=== PATIENT | female | born 1995 | race Caucasian/White ===

== ENCOUNTER 2016-09-24 19:30 | Inpatient (IN) | payer BC ==
[~2016-09-24] VITALS: Ht 160 cm; Wt 81.6 kg
--- NOTE | 2016-09-24 19:30 | NUR ---
MOTHER IN ROOM WITH PATIENT, PT CONVERSIVE AND MOTIVATED TO LEARN MORE ABOUT REHAB. REVIEWED THE ADMISSION PROCESS WITH PATIENT AND WHAT TO EXPEC THE FIRST DAY OF REHAB. PT SMILES EASILY, CONVERSIVE. PT DENIES PAIN. LEFT BRACE ON, LEFT ARM IN SLING.
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
[2016-09-24 21:59] VITALS: BP 120/64; BMI 31.9
[2016-09-25] MEDS ORDERED: BUPROPION XL150 MG PO (00:09)
[2016-09-25] MEDS ORDERED: CELEXA40 MG PO (00:10)
--- NOTE | 2016-09-25 03:00 | NUR ---
PT RESTING QUIETLY WITH EYES CLOSED, NO S/S OF ACUTE DISTRESS. RESPIRATIONS REGULAR AND UNLABORED.
--- NOTE | 2016-09-25 06:26 | NUR ---
PT SNUGGLED IN BED, PT AROUSES TO VOICE, TOOK HER AM MEDICATIONS AND REQUESTED THE ABILITY TO FALL BACK ASLEEP.
[2016-09-25 07:27] LABS: BASOPHILS 0.3 % (0-2); EOSINOPHILS 3.3 % (0-7); HEMATOCRIT 30.9 % (36.0-48.0); LYMPHOCYTES 19.6 % (15-50); MCH 26.7 pg (26.0-34.0); MCHC 32.4 g/dL (31.0-37.0); MCV 82.6 fL (80.0-100.0); MEAN PLATELET VOLUME 9.8 fL (7.4-10.4); MONOCYTES 6.6 % (2-11); NEUTROPHILS 66.2 % (40-80); PLATELET COUNT 273 10x3/uL (130-400); RBC 3.74 10x6/uL (4.00-5.40); RDW 15.1 % (11.5-14.5)
[2016-09-25 07:51] LABS: CALC OSMOLALITY 278 mosm/kg (275-300); CALCIUM 8.9 mg/dL (8.5-10.1); CHLORIDE - SERUM 105 mmol/L (98-107); CREATININE - SERUM 0.7 mg/dL (0.6-1.3); GLUCOSE 87 mg/dL (74-106); POTASSIUM - SERUM 4.4 mmol/L (3.5-5.1); SODIUM 140 mmol/L (136-145); UREA NITROGEN 14 mg/dL (7-18); eGFR NON AFRICAN AMERICAN > 90 mL/min (90-120)
[2016-09-25 08:00] VITALS: BP 116/57
--- NOTE | 2016-09-25 08:00 | NUR ---
PATIENT SITTING UP IN BED FOR BREAKFAST. ALERT/ORIENT X4. CALL LIGHT WITHIN REACH. VOICES NO NEEDS AT THIS TIME
--- NOTE | 2016-09-25 10:54 | NUR ---
PATIENT WORKING WITH OCCUPATIONAL THERAPIST. HELPING PATIENT WITH A SHOWER THIS MORNING. PRN PAIN MEDICATION GIVEN BEFORE SHOWER
[2016-09-25 11:09] VITALS: Ht 160 cm; Wt 81.6 kg
--- NOTE | 2016-09-25 16:01 | NUR ---
PATIENT IS A TOTAL ASST WITH SLIDING BOARD. TOE DOWN WT BEARING ON RIGHT SIDE. NO WT BEARING ON LEFT SIDE.
--- NOTE | 2016-09-25 16:40 | NUR ---
PATIENT HELPED BACK INTO BED WITH SLIDING BOARD.
--- NOTE | 2016-09-25 18:45 | NUR ---
RESTING QUIETLY IN BED CALL LIGHT IN REACH
--- NOTE | 2016-09-25 20:15 | NUR ---
PT TRANSFERRED FROM BED TO W/C WITH SLIDE BOARD, LIMITATIONS OBSERVED AND ADHERED TO, TRANSFERRED TO TOILET WITHOUT DIFFICULTY. PT NOW PUTTING TOGETHER PUZZLE IN THERAPY GYM. PT ABLE TO SELF PROPEL HER W/C.
[2016-09-25 21:39] VITALS: BP 131/74
--- NOTE | 2016-09-26 00:02 | NUR ---
PT BACK IN BED, REPOSITIONED, PT DID WELL WITH THE THOUGHT PROCESSES AND PROBLEM SOLVING OF USING THE SLIDE BOARD FOR TRANSFER TO TOILET, W/C AND BED. PT STATED SHE FELT LIKE A REAL PERSON SITTING AT A TABLE WORKING ON A PUZZLE. PT STATES SHE IS SORE FROM SITTING UP FOR SO LONG.
--- NOTE | 2016-09-26 03:21 | NUR ---
PT AWAKE, DROWSY WITH C/O OF LEFT SHOULDER PAIN, STATES HER PILLOW FELL. REPOSITIONED PILLOW.
[2016-09-26 06:14] LABS: BASOPHILS 0.1 % (0-2); EOSINOPHILS 2.5 % (0-7); HEMATOCRIT 30.8 % (36.0-48.0); HEMOGLOBIN 9.9 g/dL (12-16); IMMATURE GRANULOCYTES 3.9 % (0-5); LYMPHOCYTES 19.3 % (15-50); MCH 26.8 pg (26.0-34.0); MCHC 32.1 g/dL (31.0-37.0); MCV 83.5 fL (80.0-100.0); MEAN PLATELET VOLUME 10.1 fL (7.4-10.4); MONOCYTES 9.7 % (2-11); NEUTROPHILS 64.5 % (40-80); PLATELET COUNT 299 10x3/uL (130-400); RBC 3.69 10x6/uL (4.00-5.40); RDW 15.4 % (11.5-14.5); WBC 7.6 10x3/uL (4.8-10.8)
--- NOTE | 2016-09-26 06:30 | NUR ---
pt expresses concern with morning blood drawers. pt is conversive, friendly and motivated to get home. pt inquired on care team meeting this morning. provided pt with brief explanation.
[2016-09-26 06:34] LABS: CALC OSMOLALITY 278 mosm/kg (275-300); CALCIUM 8.9 mg/dL (8.5-10.1); CARBON DIOXIDE 25.3 mmol/L (21.0-32.0); CHLORIDE - SERUM 104 mmol/L (98-107); CREATININE - SERUM 0.8 mg/dL (0.6-1.3); GLUCOSE 89 mg/dL (74-106); POTASSIUM - SERUM 4.4 mmol/L (3.5-5.1); SODIUM 140 mmol/L (136-145); UREA NITROGEN 15 mg/dL (7-18); eGFR NON AFRICAN AMERICAN > 90 mL/min (90-120)
--- NOTE | 2016-09-26 07:50 | NUR ---
REMAINS SLEEPING.RESP EASY.CL IN REACH.
[2016-09-26 08:10] VITALS: BP 111/53
--- NOTE | 2016-09-26 08:16 | NUR ---
PATIENT ALERT/ORIENT X4. SITTING UP IN BED TO EAT BREAKFAST. CALL LIGHT WITHIN REACH. VOICES NO NEEDS
--- NOTE | 2016-09-26 09:31 | NUR ---
PRN PAIN MEDICATION GIVEN FOR ALL OVER BODY PAIN/DISC.
--- NOTE | 2016-09-26 10:20 | NUR ---
PATIENT IN REHAB ROOM. WORKING WITH OCCUPATIONAL THERAPIST
--- NOTE | 2016-09-26 13:19 | NUR ---
CARE PLAN MEETING. DR. Robert REID INTO SEE PATIENT. NEW ORDERS RECEIVED.
--- NOTE | 2016-09-26 15:32 | NUR ---
PATIENT IS TOE DOWN WEIGHT BEARING ON RIGHT SIDE. NO WEIGHT BEARING ON LEFT SIDE. PATIENT USING SLIDING BOARD TO TRANSFER FROM WHEELCHAIR INTO BED.
--- NOTE | 2016-09-26 16:49 | NUR ---
CARE TEAM MEETING: PATIENT ATTENDED MEETING AND HAS BEEN GRANTED A PASS WITH A HOME EVAL. PATIENT WILL BE RA AT NEXT MEETING. SHE WILL BE IN NEED OF A WHEELCHAIR, SLIDE BOARD, SHOWER CHAIR. WILL CONTINUE TO FOLLOW WITH PATIENT
--- NOTE | 2016-09-26 17:47 | NUR ---
PRN ULTRUM GIVEN TO PATIENT FOR ALL OVER BODY PAIN/DISC
[2016-09-26 19:07] VITALS: BP 163/87
--- NOTE | 2016-09-26 19:45 | NUR ---
PT IN THERAPY GYM SITTING UP IN W/C PUTTING HER PUZZLE PIECES TOGETHER. PT IS EXPECTING VISITORS DURING THE WEEK-END AND EXPRESSED CONCERN WITH VISITATION AND THERAPY SCHEDULE CONFLICT. ENCOURAGED PT TO SPEAK WITH THERAPY. SKIN UNDER BOOT IS INTACT, LEFT FOOT IS WARM, SENSATION INTACT, PEDAL PULSE PALPABLE. WRAP INTACT.
--- NOTE | 2016-09-27 00:05 | NUR ---
PT REQUESTED TO GET READY FOR BED, PT STATES SHE ENJOYS PUTTING HER PUZZLE TOGETHER. PT TRANSFERS WITH ONE USING THE BOARD ADHEREING TO WEIGHT BEARING PRECAUTIONS.
--- NOTE | 2016-09-27 03:56 | NUR ---
PT RESTING QUIETLY, EYES CLOSED, NO S/S OF ACUTE DISTRESS.
--- NOTE | 2016-09-27 07:40 | NUR ---
PT IS RESTING IN BED WITH EYES CLOSED. AWOKE EASILY TO VERBAL STIMULI. ALERT AND ORIENTED X 3. PT VOICED COMPLAINT OF A PAIN LEVEL OF 5 AT THIS TIME IN HER ENTIRE LEFT SIDE. MULTIPLE INTACT DRESSINGS NOTED TO LLE. INTACT CAST NOTED TO LUE WITH SLING IN PLACE. GOOD CAPILLARY REFILL NOTED. SR'S ARE UP X 2 IN BED. CALL LIGHT AND BEDSIDE TABLE ARE WITHIN EASY REACH.
--- NOTE | 2016-09-27 09:46 | NUR ---
PT IS RESTING IN BED WITH EYES CLOSED. AWAITING THERAPY. NO ACUTE DISTRESS NOTED.
[2016-09-27 11:34] VITALS: BP 110/59
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
--- NOTE | 2016-09-27 12:25 | NUR ---
PT IS FEEDING SELF LUNCH IN HER ROOM. NO NEEDS VOICED.
--- NOTE | 2016-09-27 14:38 | NUR ---
PT ASSISTED TO BED BY THERAPY. NO NEEDS VOICED.
--- NOTE | 2016-09-27 17:33 | NUR ---
PT IS UP IN HER WC BEING PROPELLED AROUND THE HOSPITAL BY HER FRIENDS.
--- NOTE | 2016-09-27 19:00 | NUR ---
UP IN W/C IN ROOM. DENIES NEEDS.
--- NOTE | 2016-09-27 19:30 | NUR ---
REMAINS UP IN W/C. NO COMPLAINTS. HEADED TO THERAPY ROOM TO WATCH TV AND WORK ON A PUZZLE.
[2016-09-27 20:10] VITALS: BP 152/77
--- NOTE | 2016-09-27 22:00 | NUR ---
REMAINS IN THERAPY ROOM. ASSESSMENT AND HS MEDS COMPLETE. GAVE PATIENT ULTRAM 50MG PO FOR PAIN LEVEL OF 7/10 PRIMARILY IN LEFT FEMUR AND LEFT LOWER LEG. OPENED 3D BOOT AND ASSESSED LEFT MEDIAL CALF DUE TO PAIN AND C/O REDNESS AND WARMTH. AREA IS SLIGHTLY WARMER THAN THE REST OF LE EXCEPT FOR INCISIONAL AREAS, BUT NO REDNESS IS NOTED AT THIS TIME. READJUSTED STRAPS OF BOOT AND COVERED LE TREE WRAP WITH VERTICAL STRIP OF TELFA DUE TO INNER VELCRO OF BOOT ATTACHING TO TREE WRAP AND ALSO CAUSING LOCAL IRRITATION OF ANTERIOR SKIN OF CALF. DENIES FURTHER NEEDS.
--- NOTE | 2016-09-28 | NUR ---
PATIENT JUST FINISHED TOILETING ON COMMODE. REQUESTED A FEMALE CAREGIVER FOR ASSIST WITH TOILETING AND THAT WAS PROVIDED BY KENJI MENG. I ASSISTED HER BACK INTO BED JUST NOW WITH MIN ASSIST TO STABILIZE SLIDEBOARD SHE PERFORMED SLIDEBOARD TRANSFER. REARRANGED HER COVERS AND PLUGGED IN HER PHONE AND COMPUTER. DENIES PAIN OR OTHER NEEDS.
--- NOTE | 2016-09-28 02:00 | NUR ---
RESTING IN BED, EYES CLOSED. NO APPARENT DISCOMFORT.
--- NOTE | 2016-09-28 04:00 | NUR ---
REMAINS IN BED, RESTING WITH EYES CLOSED. RESPIRATIONS ARE QUIET AND UNLABORED.
--- NOTE | 2016-09-28 06:15 | NUR ---
RESTING QUIETLY, EYES CLOSED.
[2016-09-28 07:14] LABS: BASOPHILS 0.4 % (0-2); EOSINOPHILS 2.6 % (0-7); HEMATOCRIT 31.3 % (36.0-48.0); HEMOGLOBIN 9.9 g/dL (12-16); IMMATURE GRANULOCYTES 2.1 % (0-5); LYMPHOCYTES 22.5 % (15-50); MCHC 31.6 g/dL (31.0-37.0); MCV 85.5 fL (80.0-100.0); MEAN PLATELET VOLUME 10.1 fL (7.4-10.4); MONOCYTES 6.9 % (2-11); NEUTROPHILS 65.5 % (40-80); PLATELET COUNT 282 10x3/uL (130-400); RBC 3.66 10x6/uL (4.00-5.40); RDW 15.9 % (11.5-14.5); WBC 7.3 10x3/uL (4.8-10.8)
[2016-09-28 07:22] LABS: CALC OSMOLALITY 273 mosm/kg (275-300); CARBON DIOXIDE 24.5 mmol/L (21.0-32.0); CHLORIDE - SERUM 105 mmol/L (98-107); CREATININE - SERUM 0.7 mg/dL (0.6-1.3); GLUCOSE 85 mg/dL (74-106); POTASSIUM - SERUM 4.2 mmol/L (3.5-5.1); SODIUM 138 mmol/L (136-145); UREA NITROGEN 11 mg/dL (7-18); eGFR NON AFRICAN AMERICAN > 90 mL/min (90-120)
--- NOTE | 2016-09-28 07:40 | NUR ---
RESTING QUIETLY IN BED CALL LIGHT IN REACH
--- NOTE | 2016-09-28 10:40 | NUR ---
PT ASSISTED UP TO THE BATHROOM BY RUBIA. PT WILL NOT LET A MALE ASSIST HER.
[2016-09-28 11:16] VITALS: BP 116/58
--- NOTE | 2016-09-28 14:57 | NUR ---
PT DEPARTED UNIT VIA WC PROPELLED BY HER MOTHER FOR THERAPEUTIC PASS.
--- NOTE | 2016-09-28 19:00 | NUR ---
PATIENT OUT OF HOSPITAL ON PASS. SCHEDULED TO RETURN PRIOR TO MIDNIGHT INSTRUCTED BY DAY SHIFT NURSE.
--- NOTE | 2016-09-28 22:40 | NUR ---
RETURNED FROM PASS. RUBIA WORKING WITH PATIENT AT [facility] [place] [place], GETTING HER READY FOR BED SHE REQUESTS A FEMALE CAREGIVER FOR HER PERSONAL CARE.
[2016-09-28 23:25] VITALS: BP 100/49
--- NOTE | 2016-09-28 23:30 | NUR ---
PATIENT IN BED. ASSESSMENT AND HS MEDS COMPLETE. C/O PAIN LEVEL OF 8/10 IN LEFT LEG. GAVE HER ULTRAM 50MG PO WITH HS MEDS.
--- NOTE | 2016-09-29 | NUR ---
REMAINS IN BED, AWAKE. DENIES NEEDS.
--- NOTE | 2016-09-29 01:50 | NUR ---
RESTING QUIETLY IN BED, EYES CLOSED. APPEARS COMFORTABLE.
--- NOTE | 2016-09-29 04:45 | NUR ---
REMAINS IN BED, EYES CLOSED. RESPIRING QUIETLY.
--- NOTE | 2016-09-29 08:30 | NUR ---
PT RESTING, EYES CLOSED. PT REQ NOT TO BE BOTHERED AT THIS TIME.
[2016-09-29 10:14] VITALS: BP 122/71
--- NOTE | 2016-09-29 10:22 | NUR ---
PT AWAKE, ASSISTED TO BR. PT REQ AND REC'D PRN PAIN MEDICATION PER ORDERS AT THIS TIME.
--- NOTE | 2016-09-29 12:30 | NUR ---
PT HAS FAMILY IN ROOM. DENIES NEEDS. WCTM.
--- NOTE | 2016-09-29 14:33 | NUR ---
PT RESTING IN ROOM, FAMILY AT BEDSIDE. WCTM.
--- NOTE | 2016-09-29 16:00 | NUR ---
PT REQ AND REC'D PRN PAIN MEDICATION PER ORDERS AT THIS TIME.
--- NOTE | 2016-09-29 17:48 | NUR ---
PT HAS VISITOR IN ROOM. PT REFUSED SHOWER TODAY STATING SHE WAS JUST "TOO TIRED AFTER BEING OUT LATE AND DOING THERAPY TODAY."
--- NOTE | 2016-09-29 18:28 | NUR ---
RESTING QUIETLY IN BED CALL LIGHT IN REACH
[2016-09-29 19:00] VITALS: BP 121/57
--- NOTE | 2016-09-29 19:15 | NUR ---
PATIENT IN BR FOR TOILETING AND ASSIST TO DRESS FOR BED. DAY SHIFT NURSE JERZY MENG ASSISTING PATIENT SHE REQUESTS FEMALE CAREGIVERS TO ASSIST WITH HER PERSONAL AND TOILETING CARE.
--- NOTE | 2016-09-29 21:30 | NUR ---
ASSESSMENT AND HS MEDS COMPLETE. GAVE PATIENT ULTRAM 50MG PO FOR PAIN LEVEL OF 7/10 IN RIGHT LEG. DENIES FURTHER NEEDS.
--- NOTE | 2016-09-30 | NUR ---
RESTING IN BED ON LEFT SIDE. NO DISTRESS NOTED.
--- NOTE | 2016-09-30 02:00 | NUR ---
IN BED ON RIGHT SIDE, EYES CLOSED. STIRRING A BIT AT THIS TIME.
--- NOTE | 2016-09-30 04:40 | NUR ---
PATIENT AWAKE. C/O PAIN LEVEL OF 8/10 IN LEFT LEG. GAVE HER IBUPROFEN 800MG + ULTRAM 50MG PO.
--- NOTE | 2016-09-30 06:00 | NUR ---
KIMSJavier IN BED, EYES CLOSED. RESPIRING QUIETLY. EARLIER ON SHIFT, EXPRESSED THAT SHE WANTS HER LOVENOX RESCHEDULED FOR 0900 AND 2100 SHE DOES NOT WANT TO BE AWAKENED IN THE EARLY AM FOR AN INJECTION AT 6:00. SCANNED A NOTE TO PHARMACY REQUESTING THE LOVENOX SCHEDULE BE CHANGED STARTING AT 0900 THIS AM. A RESULT, HER LOVENOX INJECTION SCHEDULED FOR NOW IS HELD PENDING THE REQUESTED CHANGE.
--- NOTE | 2016-09-30 08:09 | NUR ---
PT IS RESTING QUIETY, EYES CLOSED. RR EVEN AND UNLABORED. WCTM.
--- NOTE | 2016-09-30 08:30 | NUR ---
SITTING UP EATING BREAKFAST DENIES NEEDS CALL LIGHT IN REACH
--- NOTE | 2016-09-30 09:57 | NUR ---
PT AWAKE EATING BREAKFAST. AM MEDS ADMINISTERD. PT DENIES NEEDS.
--- NOTE | 2016-09-30 11:53 | NUR ---
SHOWER GIVEN. PT IN BED RESTING. WCTM.
--- NOTE | 2016-09-30 13:05 | NUR ---
PT BP HAS BEEN RUNNING LOW SINCE HER SHOWER. 90/38, 95/41 AND 92/49. PT WAS DIZZY, LIGHTHEADED AND SWEATING. PT HAS BEEN RESTING IN BED WITH FEET ELEVATED SINCE SHOWER. PT HAS ALSO BEEN ENCOURAGED TO DRINK FLUIDS. PT FSBS WAS 97. PT STATES THAT SHE IS "JUST REALLY TIRED NOW." DR REID CALLED AND VOICEMAIL LEFT.
--- NOTE | 2016-09-30 14:02 | NUR ---
PT ASSISTED TO BR. PT BP UP TO 104/55. PT STATES SHE IS FEELING BETTER. WCTM.
[2016-09-30 14:16] VITALS: BP 104/55
--- NOTE | 2016-09-30 20:06 | NUR ---
ENCOURAGED PT TO DRINK MORE WATER AND LOWER HOB AND RAISE LEGS SHE STATES SHE IS STARTING TO GET DIZZY AGAIN. PT STATES SHE DOESN'T LIKE THAT POSITION, OBTAINING VITAL SIGNS, RESPIRATIONS REGULAR AND UNLABORED, PT DENIES PAIN.
[2016-10-01 02:39] VITALS: BP 108/57
--- NOTE | 2016-10-01 04:44 | NUR ---
PT RESTING WITH EYES CLOSED, RESPIRATIONS REGULAR AND UNLABORED.
--- NOTE | 2016-10-01 06:54 | NUR ---
PT RESTING WITH EYES CLOSED, NO S/S OF ACUTE DISTRESS.
[2016-10-01 07:36] LABS: BASOPHILS 0.3 % (0-2); EOSINOPHILS 3.2 % (0-7); HEMATOCRIT 31.3 % (36.0-48.0); HEMOGLOBIN 9.7 g/dL (12-16); IMMATURE GRANULOCYTES 1.1 % (0-5); LYMPHOCYTES 22.7 % (15-50); MCH 26.6 pg (26.0-34.0); MEAN PLATELET VOLUME 10.1 fL (7.4-10.4); MONOCYTES 7.3 % (2-11); NEUTROPHILS 65.4 % (40-80); PLATELET COUNT 297 10x3/uL (130-400); RBC 3.64 10x6/uL (4.00-5.40); RDW 15.5 % (11.5-14.5); WBC 6.3 10x3/uL (4.8-10.8)
[2016-10-01 07:55] LABS: CALC OSMOLALITY 278 mosm/kg (275-300); CALCIUM 8.9 mg/dL (8.5-10.1); CARBON DIOXIDE 28.9 mmol/L (21.0-32.0); CHLORIDE - SERUM 105 mmol/L (98-107); CREATININE - SERUM 0.8 mg/dL (0.6-1.3); GLUCOSE 85 mg/dL (74-106); POTASSIUM - SERUM 4.1 mmol/L (3.5-5.1); SODIUM 141 mmol/L (136-145); UREA NITROGEN 10 mg/dL (7-18); eGFR NON AFRICAN AMERICAN > 90 mL/min (90-120)
--- NOTE | 2016-10-01 08:15 | NUR ---
PT RESTING IN BED WITH EYES CLOSED CALL LIGHT IN REACH NO PROBLEMS WILL MONITER
--- NOTE | 2016-10-01 08:15 | NUR ---
SITTING UP EATING BREAKFAST DENIES NEEDS CALL LIGHT IN REACH
[2016-10-01 12:19] VITALS: BP 108/39
--- NOTE | 2016-10-01 16:32 | NUR ---
PT UP IN WHEELCHAIR IN ROOM CALL LIGHT IN REACH NO PROBLEMS WILL MONITER
[2016-10-01 18:59] VITALS: BP 115/66
--- NOTE | 2016-10-01 19:19 | NUR ---
PT STATES SHE IS CATCHING UP ON QUIET TIME LISTENING TO SERMONS. PLEASANT, STATES SHE HAS HAD A GREAT DAY SO FAR, DENIES ANY NEEDS.
--- NOTE | 2016-10-02 04:01 | NUR ---
PT RESTING QUIETLY, REQUESTS PAIN MEDICATION. ADMINISTERED.
[2016-10-02 10:32] VITALS: BP 96/47
--- NOTE | 2016-10-02 15:12 | NUR ---
PT UP IN WHEELCHAIR IN THERAPY GYM TOLERATING WELL WILL MONITER
--- NOTE | 2016-10-02 15:18 | NUR ---
NUTRITION MONITORING & EVAL CHART REVIEWED. PT TOLERATING REG DIET. 100% INTAKE RECENT MEALS. RD FOLLOWING
--- NOTE | 2016-10-02 18:14 | NUR ---
HAVING DINNER WITH MOTHER.DENIES NEEDS.
--- NOTE | 2016-10-02 18:55 | NUR ---
IN BED, AWAKE. DENIES NEEDS.
[2016-10-02 20:09] VITALS: BP 112/53
--- NOTE | 2016-10-02 20:20 | NUR ---
IN BED, HOB UP 45 DEGREES. NO C/O AT THIS TIME.
--- NOTE | 2016-10-02 22:00 | NUR ---
ASSESSMENT AND HS MEDS COMPLETE. GAVE HER ULTRAM 50MG PO FOR PAIN LEVEL OF 7/10 IN LEFT LEG AND KNEE. ASKS FOR FEMALE CASHIER AND WAITER/WAITRESS TO ASSIST HER UP TO BR COMMODE AND TO PREPARE FOR BED.
--- NOTE | 2016-10-03 00:15 | NUR ---
REMAINS AWAKE, HOB UP 45 DEGREES. DENIES CURRENT NEEDS. EARLIER REFUSED SCHEDULED MELATONIN. SAYS SHE SLEEPS OK WITHOUT IT.
--- NOTE | 2016-10-03 02:20 | NUR ---
IN BED, AWAKE. WAS GIVEN ULTRAM 50MG PO BY RHIANNA, FOR LEFT LEG AT 0204.
--- NOTE | 2016-10-03 04:20 | NUR ---
RESTING IN BED, EYES CLOSED. RESPIRING QUIETLY.
[2016-10-03 05:53] LABS: BASOPHILS 0.5 % (0-2); HEMATOCRIT 32.8 % (36.0-48.0); HEMOGLOBIN 10.1 g/dL (12-16); IMMATURE GRANULOCYTES 0.8 % (0-5); LYMPHOCYTES 29.7 % (15-50); MCH 26.5 pg (26.0-34.0); MCHC 30.8 g/dL (31.0-37.0); MCV 86.1 fL (80.0-100.0); MEAN PLATELET VOLUME 10.5 fL (7.4-10.4); MONOCYTES 6.2 % (2-11); NEUTROPHILS 59.8 % (40-80); PLATELET COUNT 304 10x3/uL (130-400); RBC 3.81 10x6/uL (4.00-5.40); RDW 15.1 % (11.5-14.5)
--- NOTE | 2016-10-03 06:00 | NUR ---
ELIASIENT WAS ASSISTED UP TO BR BYAlana MOCTEZUMA LPN. ON RETURN TO BED, C/O PAIN LEVEL OF 8/10 IN RIGHT LEG WITH SENSATION OF PRESSURE/TIGHTNESS. POSITION IN BED IS OK.
[2016-10-03 06:03] LABS: CALC OSMOLALITY 275 mosm/kg (275-300); CALCIUM 9.1 mg/dL (8.5-10.1); CARBON DIOXIDE 26.8 mmol/L (21.0-32.0); CHLORIDE - SERUM 103 mmol/L (98-107); CREATININE - SERUM 0.7 mg/dL (0.6-1.3); GLUCOSE 84 mg/dL (74-106); SODIUM 138 mmol/L (136-145); eGFR NON AFRICAN AMERICAN > 90 mL/min (90-120)
[2016-10-03 06:04] LABS: UREA NITROGEN 15 mg/dL (7-18)
--- NOTE | 2016-10-03 07:53 | NUR ---
STILL SLEEPING.RESP EASY.CL IN REACH.
[2016-10-03 09:25] VITALS: BP 102/45
--- NOTE | 2016-10-03 09:45 | NUR ---
PT IS RESTING IN BED AWAITING THERAPY.
--- NOTE | 2016-10-03 12:01 | NUR ---
PT IS RESTING IN BED AWAITING LUNCH. NO ACUTE DISTRESS NOTED.
[2016-10-03] MEDS ORDERED: NEURONTIN 300300 MG PO (12:29)
[2016-10-03] MEDS ORDERED: ACETAMINOPHEN325 MG PO (12:29)
[2016-10-03] MEDS ORDERED: IBUPROFEN800 MG PO (12:29)
[2016-10-03] MEDS ORDERED: ZOFRAN ODT4 MG/UDTAB PO (12:29)
[2016-10-03] MEDS ORDERED: ULTRAM50 MG PO (12:29)
--- NOTE | 2016-10-03 15:24 | NUR ---
CARE TEAM MEETING: PATIENT DISCHARGING HOME TODAY WITH FAMILY. YAMILE WILL FOLLOW WITH PATIENT AT HOME. [facility] DELIVERED, WHEEL CHAIR, SLIDE BOARD. APPOINTMENTS: DR. PRICE 10/04/16 @ 11:15, DR. GUILLEN, PATIENT PCP ASK THAT PATIENT CALL AND MAKE AN APPOINTMENT. PATIENT CHOICE FOR HOME HEALTH SIGNED AND FILED IN CHART. ORDERS HAVE BEEN FAXED WITH CONFORMATION RECIEVED
--- NOTE | 2016-10-03 15:54 | NUR ---
PT DEPARTED UNIT TO [place] [facility] VIA WC PROPELLED BY STAFF. ALL BELONGINGS TAKEN WITH PT. DEPARTED GROUNDS VIA POV DRIVEN BY HER MOTHER.
== END 2016-10-03 15:55 | disposition home health service (06) | DRG 561 ==
LOC: D.REHAB 19:30
PROVIDERS: ADMIT Emergency Medicine
DX: S72.92XD Unspecified fracture of left femur, subsequent encounter for closed fracture with routine healing (principal); S32.10XD Unspecified fracture of sacrum, subsequent encounter for fracture with routine healing; S52.225D Nondisplaced transverse fracture of shaft of left ulna, subsequent encounter for closed fracture with routine healing; S82.302D Unspecified fracture of lower end of left tibia, subsequent encounter for closed fracture with routine healing; S32.89XD Fracture of other parts of pelvis, subsequent encounter for fracture with routine healing; S63.015D Dislocation of distal radioulnar joint of left wrist, subsequent encounter; S32.009D Unspecified fracture of unspecified lumbar vertebra, subsequent encounter for fracture with routine healing; E11.9 Type 2 diabetes mellitus without complications; E28.2 Polycystic ovarian syndrome; F41.8 Other specified anxiety disorders; V89.2XXD Person injured in unspecified motor-vehicle accident, traffic, subsequent encounter